=== PATIENT | male | born 1985 | race Caucasian/White ===

== ENCOUNTER → 2016-09-19 | Outpatient (REF) ==
--- NOTE | 2016-09-19 17:37 | REP ---
REASON: Disability determination. COMPARISON: None. AP and lateral views were obtained. Tiny partial syndesmophytes are seen bilaterally at L3-4. There is mild disc space narrowing at every level with mild anterior lipping. Vertebral body height and alignment is within normal limits. IMPRESSION: Chronic changes as described above. Signed by Domenico Marks DO 09/19/2016 05:46 P
== END ==
LOC: M SMT 14:33
PROVIDERS: ATTEND Internal Medicine
DX: Z02.71 Encounter for disability determination (principal)

== ENCOUNTER → 2017-06-27 | Outpatient (CLI) | payer MEDICARE, MEDICAID ==
[2017-06-27 13:53] LABS: HEMATOCRIT 40.6 % (42.0-52.0); HEMOGLOBIN 13.9 g/dl (13.5-17.5); MEAN CORPUSCULAR HEMOGLOBIN 29.6 pg (27.0-33.0); MEAN CORPUSCULAR HGB CONC 34.2 g/dl (32.0-36.5); MEAN CORPUSCULAR VOLUME 86.6 fl (80.0-96.0); PLATELET COUNT, AUTOMATED 272 10^3/uL (150-450); RED BLOOD COUNT 4.69 10^6/uL (4.30-6.10); RED CELL DISTRIBUTION WIDTH 13.2 % (11.5-14.5); WHITE BLOOD COUNT 7.2 10^3/uL (4.0-10.0)
[2017-06-27 14:07] LABS: INR 0.95; PROTHROMBIN TIME 12.8 SECONDS (12.4-14.5)
[2017-06-27 14:08] LABS: PARTIAL THROMBOPLASTIN TIME 28.9 SECONDS (26.8-37.9)
[2017-06-27 14:20] LABS: ALBUMIN 3.5 GM/DL (3.2-5.2); ALBUMIN/GLOBULIN RATIO 0.88 (1.00-1.93); ALKALINE PHOSPHATASE 100 U/L (45-117); ALT/SGPT 46 U/L (12-78); ANION GAP 4 MEQ/L (8-16); AST/SGOT 37 U/L (7-37); BILIRUBIN,TOTAL 0.3 MG/DL (0.2-1.0); BLOOD UREA NITROGEN 12 MG/DL (7-18); CALCIUM LEVEL 8.4 MG/DL (8.5-10.1); CARBON DIOXIDE LEVEL 28 MEQ/L (21-32); CHLORIDE LEVEL 109 MEQ/L (98-107); CREATININE FOR GFR 0.74 MG/DL (0.70-1.30); GLOMERULAR FILTRATION RATE > 60.0 (>60); GLUCOSE, FASTING 88 MG/DL (70-100); POTASSIUM SERUM 4.5 MEQ/L (3.5-5.1); SODIUM LEVEL 141 MEQ/L (136-145); TOTAL PROTEIN 7.5 GM/DL (6.4-8.2)
== END ==
LOC: M LAB 13:16
DX: K02.9 Dental caries, unspecified (principal); Z79.01 Long term (current) use of anticoagulants
CPT/HCPCS: 80053

== ENCOUNTER 2017-06-28 08:36 | Day surgery (SDC) | payer MEDICARE, MEDICAID ==
[~2017-06-28 08:36] MED LIST: LIDOCAINE 2% INJ 100 MG/5 ML SDV (FOR ANES.) As Ordered; MIDAZOLAM INJ 2 MG/2 ML VIAL (J2250) As Ordered; ONDANSETRON 4MG/2ML VIAL (J2405) As Ordered; PROPOFOL 200 MG/20 ML VIAL As Ordered; ROCURONIUM BROMIDE 50 MG/5 ML VIAL As Ordered; dexameTHASONE 4 MG/ML 1ML VIAL (J1100) As Ordered; fentaNYL 250 MCG/5 ML INJECTION (J3010) As Ordered
[2017-06-28] MEDS ORDERED: PROPOFOL 200 MG/20 ML VIAL As Ordered (09:41)
[2017-06-28] MEDS ORDERED: SUCCINYLCHOLINE 100 MG/5 ML SYRINGE (J0330) As Ordered (10:12)
[2017-06-28] MEDS: LIDOCAINE W/EPINEPHRINE 1% 20ML VIAL As Ordered (10:30)
[2017-06-28] MEDS: LR 1,000 ML IV (10:45)
[2017-06-28] MEDS ORDERED: fentaNYL 100 MCG/2 ML INJECTION (J3010) As Ordered (11:02)
[2017-06-28] MEDS ORDERED: ONDANSETRON 4MG/2ML VIAL (J2405) As Ordered (11:02)
[2017-06-28] MEDS: ONDANSETRON 4MG/2ML VIAL (J2405) IV (11:05)
[2017-06-28] MEDS: fentaNYL 100 MCG/2 ML INJECTION (J3010) IV ×4 (11:05→11:20)
[2017-06-28] MEDS ORDERED: LABETALOL HCL 100 MG/20 ML VIAL IV (11:45)
[2017-06-28] MEDS ORDERED: LR 1,000 ML IV (11:45)
== END 2017-06-28 12:44 | disposition home or self-care (01) ==
LOC: M SDC 08:36
DX: K02.9 Dental caries, unspecified (principal); F32.9 Major depressive disorder, single episode, unspecified; F41.9 Anxiety disorder, unspecified; Z79.899 Other long term (current) drug therapy
CPT/HCPCS: 41899

== ENCOUNTER → 2018-04-18 | Outpatient (REF) | payer MEDICARE, MEDICAID ==
[~2018-04-18] MED LIST changes: +BUPR300T34; +GABA800T4 PO; -LIDOCAINE 2% INJ 100 MG/5 ML SDV (FOR ANES.) As Ordered; +METH10SO PO; -MIDAZOLAM INJ 2 MG/2 ML VIAL (J2250) As Ordered; -ONDANSETRON 4MG/2ML VIAL (J2405) As Ordered; -PROPOFOL 200 MG/20 ML VIAL As Ordered; -ROCURONIUM BROMIDE 50 MG/5 ML VIAL As Ordered; -dexameTHASONE 4 MG/ML 1ML VIAL (J1100) As Ordered; -fentaNYL 250 MCG/5 ML INJECTION (J3010) As Ordered
[2018-04-18 14:56] LABS: FREE T4 1.03 NG/DL (0.76-1.46); RHEUMATOID FACTOR QUANT < 10.0 IU/ML (<15.0); TOTAL PROTEIN 7.3 GM/DL (6.4-8.2); VITAMIN B12 LEVEL 801 PG/ML (247-911)
[2018-04-18 15:41] LABS: HEMOGLOBIN A1c 5.3 %
[2018-04-22 09:51] LABS: DRVV SCREEN 42.8 SEC
[2018-04-22 13:46] LABS: ALBUMIN % 50.7 % (55.8-66.1); ALPHA-1-GLOBULIN % 5.8 % (2.9-4.9); ALPHA-1-GLOBULINS 0.42 GM/DL (0.17-0.41); BETA-1-GLOBULINS 0.45 GM/DL (0.28-0.60); BETA-1-GLOBULINS % 6.2 % (4.7-7.2); BETA-2-GLOBULINS % 6.1 % (3.2-6.5); GAMMA GLOBULIN % 20.2 % (11.1-18.8)
[2018-04-22 13:47] LABS: BETA-2-GLOBULINS 0.45 GM/DL (0.19-0.55); GAMMA GLOBULINS 1.47 GM/DL (0.65-1.58)
[2018-04-23 14:14] LABS: ANTINUCLEAR ANTIBODIES DIRECT Negative (Negative); VITAMIN E(ALPHA TOCOPHEROL) 6.7 mg/L (5.9-19.4); VITAMIN E(GAMMA TOCOPHEROL) 1.4 mg/L (0.7-4.9)
== END ==
LOC: M LABNEURO 11:57
PROVIDERS: ATTEND Psychiatry & Neurology Neurology
DX: G62.9 Polyneuropathy, unspecified (principal); G56.00 Carpal tunnel syndrome, unspecified upper limb

== ENCOUNTER 2022-07-27 18:06 | Inpatient (IN) | payer MEDICAID, OTHER ==
[~2022-07-27] VITALS: Ht 177.8 cm; Wt 113.0 kg
[~2022-07-27 18:06] MED LIST changes: -BUPR300T34; +BUPR300T92
[2022-07-27] MEDS ORDERED: BOOSTRIX VACCINE (TETANUS/DIPHTH/ACEL. PERTUSSIS) 0.5ML SYR IM.IMMUN ONE (20:45)
[2022-07-27 20:53] LABS: BASO % 0.4 % (0.0-1.0); EOS # 0.2 10^3/uL (0.0-0.5); HEMATOCRIT 39.1 % (42.0-52.0); HEMOGLOBIN 13.4 g/dl (13.5-17.5); LYMPH # 2.2 10^3/uL (1.5-5.0); LYMPH % 21.6 % (24.0-44.0); MEAN CORPUSCULAR HEMOGLOBIN 28.7 pg (27.0-33.0); MEAN CORPUSCULAR HGB CONC 34.3 g/dl (32.0-36.5); MEAN CORPUSCULAR VOLUME 83.7 fl (80.0-96.0); MONO # 0.9 10^3/uL (0.0-0.8); MONO % 9.1 % (2.0-8.0); NEUTROPHILS # 6.7 10^3/uL (1.5-8.5); NEUTROPHILS % 66.4 % (36.0-66.0); PLATELET COUNT, AUTOMATED 253 10^3/uL (150-450); RED BLOOD COUNT 4.67 10^6/uL (4.30-6.10); WHITE BLOOD COUNT 10.1 10^3/uL (4.0-10.0)
[2022-07-27 20:58] LABS: ETHYL ALCOHOL (ETHANOL) 0.003 % (0.000-0.010)
[2022-07-27 20:59] LABS: ACETAMINOPHEN LEVEL < 2.0 UG/ML (10.0-20.0); ALBUMIN 3.6 G/DL (3.2-5.2); ALKALINE PHOSPHATASE 95 U/L (46-116); ALT/SGPT 25 U/L (7.0-40); AST/SGOT 35 U/L (<34); BILIRUBIN,DIRECT 0.3 MG/DL (<0.4); BILIRUBIN,TOTAL 0.9 MG/DL (0.3-1.2); BLOOD UREA NITROGEN 10 MG/DL (9-23); CALCIUM LEVEL 8.3 MG/DL (8.5-10.1); CARBON DIOXIDE LEVEL 30 MMOL/L (20-31); CHLORIDE LEVEL 102 MMOL/L (98-107); CREATININE FOR GFR 0.68 MG/DL (0.70-1.30); GLOMERULAR FILTRATION RATE > 60.0 (>60); GLUCOSE, FASTING 108 MG/DL (60-100); POTASSIUM SERUM 3.6 MMOL/L (3.5-5.1); SALICYLATE LEVEL < 3.0 MG/DL (<30); SODIUM LEVEL 135 MMOL/L (136-145); TOTAL PROTEIN 6.6 G/DL (5.7-8.2)
[2022-07-27 21:00] LABS: VENOUS BASE EXCESS 1.3 (-2.0-2.0); VENOUS HCO3 26.5 MMOL/L (23.0-27.0); VENOUS O2 SATURATION 95.9 % (60.0-80.0); VENOUS PARTIAL PRESSURE CO2 43.8 mmHg (38.0-50.0); VENOUS PARTIAL PRESSURE O2 78.4 mmHg (30.0-50.0); VENOUS PH 7.399 UNITS (7.330-7.430); VENOUS STANDARD HCO3 25.6 MMOL/L; VENOUS TOTAL CO2 27.8 MMOL/L (24.0-28.0)
[2022-07-27 21:02] LABS: THYROID STIMULATING HORMONE 0.443 uIU/ML (0.55-4.78)
[2022-07-27 21:09] LABS: OSMOLALITY SERUM 278 MOSM/KG (275-295)
[2022-07-27] MEDS ORDERED: LIDOCAINE 2% 5ML JELLY UROJET TOP ONE (21:15)
[2022-07-27 21:26] LABS: CPK CREATINE PHOSPHOKINASE 370 U/L (46-171)
[2022-07-27] MEDS ORDERED: NS 1,000 ML IV SCH (22:00)
[2022-07-27 22:06] LABS: BARBITURATES URINE NEGATIVE (NEGATIVE); BENZODIAZEPINES URINE NEGATIVE (NEGATIVE); COCAINE METABOLITE URINE NEGATIVE (NEGATIVE); PHENCYCLIDINE URINE NEGATIVE (NEGATIVE)
[2022-07-27 22:07] LABS: OPIATES URINE NEGATIVE (NEGATIVE)
[2022-07-27 22:08] LABS: AMPHETAMINES LEVEL URINE POSITIVE (NEGATIVE); CANNABINOIDS URINE POSITIVE (NEGATIVE); METHADONE URINE POSITIVE (NEGATIVE)
[2022-07-27] MEDS ORDERED: HOME MED LIST COMPLETE! XX SCH (22:20)
[2022-07-27] MEDS: LR 1,000 ML IV SCH (23:29)
[2022-07-28] VITALS (12 sets, daily range): BP systolic 96–129; BP diastolic 56–76; TEMP 96.5–98.7; O2SAT 96–100
[2022-07-28 05:23] LABS: ALBUMIN 3.2 G/DL (3.2-5.2); ALKALINE PHOSPHATASE 90 U/L (46-116); ALT/SGPT 22 U/L (7.0-40); AST/SGOT 25 U/L (<34); BILIRUBIN,TOTAL 1.1 MG/DL (0.3-1.2); BLOOD UREA NITROGEN 8 MG/DL (9-23); CARBON DIOXIDE LEVEL 28 MMOL/L (20-31); CHLORIDE LEVEL 103 MMOL/L (98-107); CREATININE FOR GFR 0.61 MG/DL (0.70-1.30); GLOMERULAR FILTRATION RATE > 60.0 (>60); GLUCOSE, FASTING 100 MG/DL (60-100); POTASSIUM SERUM 3.5 MMOL/L (3.5-5.1); SODIUM LEVEL 136 MMOL/L (136-145); TOTAL PROTEIN 6.1 G/DL (5.7-8.2)
[2022-07-28] MEDS: LR 1,000 ML IV SCH (07:30)
[2022-07-28] MEDS ORDERED: ENOXAPARIN 40MG/0.4ML SYRINGE (J1650 PER 10MG) SC SCH (09:00)
[2022-07-28] MEDS ORDERED: ACETAMINOPHEN 500 MG TAB PO PRN (09:30)
[2022-07-28] MEDS ORDERED: METHADONE 10MG TAB PO ONE (11:45)
== END 2022-07-28 12:18 | disposition home or self-care (01) | DRG 52 ==
LOC: M ED 18:06 → M ED INP 23:03 → M ICU 23:03 → ENRESERV 07-28 00:06 → M ICU 07-28 00:21
PROVIDERS: ADMIT Internal Medicine; ATTEND Internal Medicine
DX: G93.41 Metabolic encephalopathy (principal); S00.93XA Contusion of unspecified part of head, initial encounter; S01.81XA Laceration without foreign body of other part of head, initial encounter; W01.0XXA Fall on same level from slipping, tripping and stumbling without subsequent striking against object, initial encounter; Y92.9 Unspecified place or not applicable; F32.A Depression, unspecified; T40.711A Poisoning by cannabis, accidental (unintentional), initial encounter; T43.651A Poisoning by methamphetamines accidental (unintentional), initial encounter; F19.90 Other psychoactive substance use, unspecified, uncomplicated; B18.2 Chronic viral hepatitis C; M51.36 Other intervertebral disc degeneration, lumbar region; F17.200 Nicotine dependence, unspecified, uncomplicated; Z79.899 Other long term (current) drug therapy; Z20.822 Contact with and (suspected) exposure to COVID-19; Z79.891 Long term (current) use of opiate analgesic